=== PATIENT | female | born 1970 | race Caucasian/White ===

== ENCOUNTER 2020-08-24 08:26 | Day surgery (SDC) | payer BC ==
[2020-08-24] MEDS ORDERED: Dextrose 5%-Lactated Ringers 1,000 ML IV SCH (09:00)
[2020-08-24] MEDS ORDERED: Propofol 200 MG/20 ML SDV ONE ×2 (09:55→11:41)
[2020-08-24] MEDS ORDERED: Midazolam 1 MG/ML 2 ML SDV ONE (09:55)
[2020-08-24] MEDS ORDERED: fentaNYL 100 MCG/2 ML SDV ONE (09:55)
--- NOTE | 2020-09-01 12:58 | OR ---
DATE OF PROCEDURE: 08/24/2020 SURGEON: Timur Thompson MD PREOPERATIVE DIAGNOSIS: Positive Cologuard examination. POSTOPERATIVE DIAGNOSIS: Normal colonoscopic examination following a positive Cologuard examination. OPERATIVE PROCEDURE: Flexible colonoscopy. ANESTHESIA: IV sedation. INDICATIONS FOR PROCEDURE: This is a 50-year-old who underwent a Cologuard exam which came back positive, referred for colonoscopy at this time. Potential risks including bleeding and perforation were discussed, and the patient wishes to proceed. DETAILS OF PROCEDURE: The patient was taken to the operating room and placed in a left lateral decubitus position. IV sedation was administered after which the initial digital rectal exam was performed and was unremarkable. The colonoscope was then passed to the level of the rectum with retroflexion revealing uncomplicated hemorrhoidal columns. The scope was eventually passed to the level of the cecum. The prep was quite good with only a small amount of liquid stool being present. To that level, no abnormalities noted. Specifically, there were no areas of diverticulosis, no areas of colitis, and no polyps or other signs of neoplasia. The scope was then withdrawn, the above findings reconfirmed, and the procedure then concluded. The patient was taken to the recovery room in satisfactory condition. Recommendation would be to repeat the colonoscopy and/or other examination in 10 years given the lack of personal or family history of colonic neoplasia. Timur Thompson MD /[id number]
== END 2020-08-24 13:15 | disposition home or self-care (01) ==
LOC: JP.SDS 08:26
PROVIDERS: ATTEND Surgery
DX: R19.5 Other fecal abnormalities (principal); K64.9 Unspecified hemorrhoids; K21.9 Gastro-esophageal reflux disease without esophagitis
CPT/HCPCS: 45378; J2250; J2704; J3010; J7121